=== PATIENT | male | born 1990 ===

== ENCOUNTER 2018-08-04 16:35 | Emergency (ER) | payer OTHER ==
[2018-08-04 17:33] VITALS: BP 113/65
--- NOTE | 2018-08-04 17:46 | UC ---
Lower Extremity/Ankle HPI - HPI Summary HPI Summary: Patient is a 28-year-old male that presents here with mild left great toe pain after skiing. He denies any specific injury but thinks he must have sustained some trauma to his toe while he was in the ski boot. As no pain when he is not bearing weight. He states that it feels painful when his toe hits the top of his shoe.. - History of Current Complaint Chief Complaint: UCLowerExtremity Stated Complaint: TOE INJURY Time Seen by Provider: 08/04/18 17:35 Hx Obtained From: Patient Onset/Duration: Gradual Onset Severity Initially: Mild Severity Currently: Mild Pain Intensity: 3 Pain Scale Used: 0-10 Numeric Aggravating Factor(s): Standing Alleviating Factor(s): Rest Able to Bear Weight: Yes - Allergies/Home Medications Allergies/Adverse Reactions: Allergies Allergy/AdvReac Type Severity Reaction Status Date / Time Penicillins Allergy Unknown Verified 08/04/18 17:33 Reaction Details PMH/Surg Hx/FS Hx/Imm Hx Previously Healthy: Yes - Surgical History Surgical History: None - Family History Known Family History: Positive: Hypertension - Social History Alcohol Use: Weekly Substance Use Type: None Smoking Status (MU): Never Smoked Tobacco Review of Systems All Other Systems Reviewed And Are Negative: Yes Constitutional: Positive: Negative Skin: Positive: Negative Eyes: Positive: Negative ENT: Positive: Negative Respiratory: Positive: Negative Cardiovascular: Positive: Negative Gastrointestinal: Positive: Negative Genitourinary: Positive: Negative Motor: Positive: Negative Neurovascular: Positive: Negative Musculoskeletal: Positive: Negative Neurological: Positive: Negative Psychological: Positive: Negative Physical Exam Triage Information Reviewed: Yes Appearance: Well-Appearing, No Pain Distress, Well-Nourished Vital Signs: Initial Vital Signs Temp 98.3 F 08/04/18 17:25 Pulse 92 08/04/18 17:25 Resp 16 08/04/18 17:25 BP 113/65 08/04/18 17:25 Pulse Ox 99 08/04/18 17:25 Vital Signs Reviewed: Yes Eyes: Positive: Conjunctiva Clear ENT: Positive: Uvula midline. Negative: Nasal congestion, Nasal drainage, Trismus, Muffled voice, Hoarse voice Neck: Positive: Supple Respiratory: Positive: Lungs clear, Normal breath sounds, No respiratory distress, No accessory muscle use Cardiovascular: Positive: RRR, No Murmur Musculoskeletal: Positive: ROM Intact, No Edema, Other: - slighly antalgic gait Neurological: Positive: Alert Psychological Exam: Normal Skin Exam: Other - 50% subungual hematoma left great toe /distal phalanx non tender Lower Extremity Course/Dx - Differential Dx/Diagnosis Provider Diagnosis: Subungual hematoma of great toe of left foot Discharge - Sign-Out/Discharge Documenting (check all that apply): Patient Departure All imaging exams completed and their final reports reviewed: No Studies - Discharge Plan Condition: Stable Disposition: HOME Patient Education Materials: Subungual Hematoma (ED) Referrals: No Primary Care Phys,NOPCP [Primary Care Provider] - Additional Instructions: post op shoe tylenol or advil for pain you may loose nail - Billing Disposition and Condition Condition: STABLE Disposition: Home
== END 2018-08-04 17:57 | disposition home or self-care (01) ==
LOC: UCEAST 16:35
DX: S90.112A Contusion of left great toe without damage to nail, initial encounter (principal); X58.XXXA Exposure to other specified factors, initial encounter; Y93.23 Activity, snow (alpine) (downhill) skiing, snowboarding, sledding, tobogganing and snow tubing; Y92.9 Unspecified place or not applicable; Z88.0 Allergy status to penicillin
CPT/HCPCS: 99202; G0463

== ENCOUNTER 2018-09-27 12:26 | Emergency (ER) | payer OTHER ==
[2018-09-27 14:48] LABS: ABS Basophils 0 10^3/ul (0-0.2); ABS Eosinophils 0.2 10^3/ul (0-0.6); ABS Lymphocytes 1.4 10^3/ul (1.0-4.8); ABS Monocytes 0.4 10^3/ul (0-0.8); ABS Neutrophils 3.8 10^3/ul (1.5-7.7); ABS Nucleated RBC 0 10^3/ul; Hematocrit 46 % (42-52); Hemoglobin 15.6 g/dl (14.0-18.0); Lymphocyte % 23.5 %; Mean Corpuscular HGB Conc 34 g/dl (31-36); Mean Corpuscular Hemoglobin 30 pg (27-31); Mean Corpuscular Volume 89 fL (80-94); Mean Platelet Volume 7.2 fL (7.4-10.4); Nucleated Red Blood Cells % 0.1; Platelet Count 245 10^3/ul (150-450); Red Blood Count 5.17 10^6/ul (4.00-5.40); Red Cell Distribution Width 13 % (10.5-15); White Blood Count 5.9 10^3/ul (3.5-10.8)
[2018-09-27 14:59] LABS: Albumin/Globulin Ratio 1.8 (1-3); Calcium 9.6 mg/dL (8.6-10.3); EGFR African American 109.3 (>60); EGFR Non-African American 90.3 (>60); Globulin 2.8 g/dL (2-4); Potassium 3.9 mmol/L (3.5-5.0); Total Bilirubin 0.9 mg/dL (0.2-1.0); Total Protein 7.8 g/dL (6.4-8.9)
--- NOTE | 2018-09-27 15:53 | ED ---
HPI Chest Pain - HPI Summary HPI Summary: Pt is a 28 y/o M presenting to the ED from [facility], referred for an EKG suggestive of pericarditis, with a chief complaint of intermittent chest discomfort and palpitations, beginning around 0100 two days ago. 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 He states his heart beat is "heavy" and causes pain, which he usually tries to sleep off. He is usually not aware of his heart beat. Pt denies fever, chills, shortness of breath, cough, or rhinorrhea. Pt did not have flu shot. Vital signs while in room: HR 75 bpm, BP 115/73. Pt states he's also a caffeine drinker, usually drinks one K-cup a day, drinks alcohol only rarely, and only 1 beer/day maximum. He is not a smoker. - History of Current Complaint Chief Complaint: EDDysrhythmPalp Time Seen by Provider: 09/27/18 14:41 Hx Obtained From: Patient, Other: - [facility] Onset/Duration: Started Days Ago, Atraumatic, Still Present Time of Onset: 01:00 - 09/25/18 Timing: Intermittent, Lasting Minutes Initial Severity: Mild Current Severity: None Pain Intensity: 0 Pain Scale Used: 0-10 Numeric Chest Pain Location: Left Anterior Chest Pain Radiates: No Character: Fast, Heaviness, Other: - discomfort Aggravating Factor(s): Exertion Alleviating Factor(s): Rest, Spontaneous Resolution Associated Signs and Symptoms: Positive: Negative - rhinorrhea, Chest Pain. Negative: Shortness of Breath, Fever, Chills, Cough - Allergy/Home Medications Allergies/Adverse Reactions: Allergies Allergy/AdvReac Type Severity Reaction Status Date / Time Penicillins Allergy Unknown Verified 08/04/18 17:33 Reaction Details PMH/Surg Hx/FS Hx/Imm Hx Previously Healthy: Yes Endocrine/Hematology History: Denies: Hx Diabetes Cardiovascular History: Denies: Hx Hypertension - Surgical History Surgery Procedure, Year, and Place: Pt denies any surgical hx. 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 Lives: Dormitory/Roommates Alcohol Use: Weekly Alcohol Amount: 1 beer/day at most Hx Substance Use: No Substance Use Type: Reports: None Hx Tobacco Use: No Smoking Status (MU): Never Smoked Tobacco Review of Systems Negative: Fever, Chills Negative: Nasal Discharge Positive: Chest Pain Negative: Shortness Of Breath Gastrointestinal: Negative Positive: no symptoms reported Musculoskeletal: Negative Skin: Negative Neurological: Negative Psychological: Normal All Other Systems Reviewed And Are Negative: Yes Physical Exam - Summary Physical Exam Summary: Appearance: Well-appearing, no pain distress, well-nourished Skin: Warm, color reflects adequate perfusion, dry Head: Normal Head/Face inspection, atraumatic Eyes: Conjunctiva clear ENT: Normal inspection Neck: Supple, no nodes, no JVD Respiratory: Lungs clear, normal breath sounds, no respiratory distress Cardio: RRR, No murmur, pulses normal, brisk capillary refill Abdomen: Soft, nontender Bowel sounds: Present Musculoskeletal: Strength Intact/ROM intact, no calf tenderness, no edema. Psychological: Normal Neuro: Alert, muscle tone normal, no focal deficit Triage Information Reviewed: Yes Vital Signs On Initial Exam: Initial Vitals Temp Pulse Resp BP Pulse Ox 98.7 F 67 18 114/75 99 09/27/18 12:28 09/27/18 12:28 09/27/18 12:28 09/27/18 12:28 09/27/18 12:28 Vital Signs Reviewed: Yes Diagnostics - Vital Signs Vital Signs Temp Pulse Resp BP Pulse Ox 09/27/18 14:19 10 09/27/18 12:28 98.7 F 67 18 114/75 99 - Laboratory Lab Results: Lab Results 09/27/18 09/27/18 09/27/18 Range/Units 14:20 14:20 14:20 WBC 5.9 (3.5-10.8) 10^3/ul RBC 5.17 (4.00-5.40) 10^6/ul Hgb 15.6 (14.0-18.0) g/dl Hct 46 (42-52) % MCV 89 (80-94) fL MCH 30 (27-31) pg MCHC 34 (31-36) g/dl RDW 13 (10.5-15) % Plt Count 245 (150-450) 10^3/ul MPV 7.2 L (7.4-10.4) fL Neut % (Auto) 65.1 % Lymph % (Auto) 23.5 % [place] % (Auto) 6.7 % Eos % (Auto) 4.0 % Baso % (Auto) 0.7 % Absolute Neuts (auto) 3.8 (1.5-7.7) 10^3/ul Absolute Lymphs (auto) 1.4 (1.0-4.8) 10^3/ul Absolute Monos (auto) 0.4 (0-0.8) 10^3/ul Absolute Eos (auto) 0.2 (0-0.6) 10^3/ul Absolute Basos (auto) 0 (0-0.2) 10^3/ul Absolute Nucleated RBC 0 10^3/ul Nucleated RBC % 0.1 Sodium 138 (135-145) mmol/L Potassium 3.9 (3.5-5.0) mmol/L Chloride 102 (101-111) mmol/L Carbon Dioxide 30 (22-32) mmol/L Anion Gap 6 (2-11) mmol/L BUN 15 (6-24) mg/dL Creatinine 1.00 (0.67-1.17) mg/dL Est GFR ( Amer) 109.3 (>60) Est GFR (Non-Af Amer) 90.3 (>60) BUN/Creatinine Ratio 15.0 (8-20) Glucose 95 (70-100) mg/dL Lactic Acid 0.6 (0.5-2.0) mmol/L Calcium 9.6 (8.6-10.3) mg/dL Total Bilirubin 0.90 (0.2-1.0) mg/dL AST 17 (13-39) U/L ALT 12 (7-52) U/L Alkaline Phosphatase 54 (34-104) U/L Troponin I 0.00 (<0.04) ng/mL Total Protein 7.8 (6.4-8.9) g/dL Albumin 5.0 (3.2-5.2) g/dL Globulin 2.8 (2-4) g/dL Albumin/Globulin Ratio 1.8 (1-3) Result Diagrams: 09/27/18 14:20 09/27/18 14:20 Lab Statement: Any lab studies that have been ordered have been reviewed, and results considered in the medical decision making process. - Radiology Chest x-ray Radiology Interpretation Completed By: Radiologist Summary of Radiographic Findings: No cardiopulmonary disease is noted. No pneumothorax is identified. ED physician has reviewed this report. - EKG 1520 Cardiac Rate: Bradycardia - 56bpm EKG Rhythm: Sinus Bradycardia ST Segment: Normal Ectopy: None EKG Comparison: No Significant Change Summary of EKG Findings: An EKG at 1236 shows sinus bradycardia at 56bpm, nml AV /IV CT, nml QTc, and nml axis. No acute changes. Diffuse ST elevations discussed with doctor Sylvester and compared with 09/27/18 at 1128 from [facility]. No significant change. [place] prior [place] [facility] - Additional Comments Diagnostic Additional Comments: Transthoracic echocardiogram There was not any prior study for comparison. Conclusions include: There is normal left ventricular systolic function. The estimated ejection fraction is 55-60%. There is a trace of mitral regurgitation. There is trace tricuspid regurgitation. A trivial pericardial effusion is visualized which measures up to 0.48 cm in a small segment adjacent to the distal RV free wall. No evidence of hemodynamic compromise. Re-Evaluation - Re-Evaluation 1st re-eval Re-Evaluation Time: 16:45 Change: Improved Comment: Pt states he does not have any pain at this time and is feeling better. ECHO is completed. Awaiting results. Chest Pain Course/Dx - Course Course Of Treatment: Pt is a 28 y/o M presenting to the ED with a chief complaint of intermittent chest discomfort around 0100 two days ago. He states his heart beat is heavy and causes pain, which he usually tries to sleep off. It is aggravated when he lies down and when he walks to/from class. Pt denies fever, chills, shortness of breath, cough, or rhinorrhea. Pt did not have flu shot. Vital signs while in room: HR 75 bpm, BP 115/73. CXR shows no cardiopulmonary disease. No pneumothorax is identified. Dr. Sylvester would like an echocardiogram done for the pt as of 1606. As of 161, the echo staff is aware that the order is stat and not routine. An EKG at 1236 shows sinus bradycardia at 56bpm, nml AV/IV CT, nml QTc, and nml axis. No acute changes. Diffuse ST elevations discussed with doctor Sylvester and compared with 09/27/18 at 1128 from formerly [facility]. No significant change. No prior E[place] [facility]. As of 164 , the pt feels better and is agreeable with discharge. Echocardiogram results include: Conclusions: There is normal left ventricular systolic function. The estimated ejection fraction is 55-60%. There is a trace of mitral regurgitation. There is trace tricuspid regurgitation. A trivial pericardial effusion is visualized which measures up to 0.48. cm in a small segment adjacent to the distal RV free wall. No evidence of hemodynamic compromise. Discussed echocardiogram results with the pt at 1735 and the pt is pain free and agreeable. - Chest Pain Differential Diagnosis/HQI/PQRI: Acute OR, ACS, Chest Wall, GI Disease, Lower Respiratory Infection, Pulmonary Embolism - Diagnoses Provider Diagnoses: Chest pain, Palpitations, ST segment changes on electrocardiogram - Provider Notifications Discussed Care Of Patient With: Nando Sylvester - Obtain Cardiac ECHO now Time Discussed With Above Provider: 16:07 Instructed by Provider To: Other - obtain ECHO now Discharge - Sign-Out/Discharge Documenting (check all that apply): Patient Departure - home to [place] Patient Received Moderate/Deep Sedation with Procedure: No - Discharge Plan Condition: Stable Disposition: HOME Patient Education Materials: Chest Pain (ED), Heart Palpitations (ED) Forms: *School Release, *Work Release Referrals: [facility] [Outside] - 2 Weeks Additional Instructions: We did not find evidence of pericarditis on the ECHO of your heart that was done today. You had two negative troponin levels, indicating no evidence of heart damage with the chest discomfort you experienced. Your CRP level was normal also indicating no inflammation or infection. Those labs will print with these discharge instructions. We have given you a copy of your cardiac ECHO. You should have definite follow up with [facility]. Return to the ER if you have any new or worsening symptoms. - Billing Disposition and Condition Condition: STABLE Disposition: Home - Attestation Statements Document Initiated by Scribe: Yes Documenting Scribe: Tiesha Erickson Provider For Whom [place] is Documenting (Include Credential): Dr. Wen Nogueira MD. Scribe Attestation: I, Tiesha Erickson, scribed for Dr. Wen Nogueira MD. on 09/28/18 at 2131. Scribe Documentation Reviewed: Yes Provider Attestation: The documentation as recorded by the scribe, Tiesha Erickson accurately reflects the service I personally performed and the decisions made by me, Dr. Wen Nogueira MD. Status of Scribe Document: Viewed Consult Consult: [id number] - Spoke with Dr. Sylvester who would like to have an echocardiogram done.
[2018-09-27 16:08] LABS: C Reactive Protein 1.46 mg/L (<8.01)
--- NOTE | 2018-09-27 17:15 | ECHO ---
Patient: HARI MURDOCK [facility] Rec#: [id number] : 1990 Date: 09/27/2018 Age: 28y Height: 180 cm / 70.9 in Weight: 78 kg / 171.9 lbs Sex: M BSA: 1.98 Room#: 19 Admit Date#: 09/27/2018 Type: Outpatient Referring: Wen Nogueira MD Reading: Nando Sylvester MD Nurse Wound: Valerie AvendanoRDCS,RDMS Transthoracic Echocardiogram Indication: CP BP: 114/70 HR: 57 Rhythm: NSR Findings History: Previously healthy Technical Comments: The study quality is fair. Left Ventricle: The left ventricular chamber size is normal. There is no left ventricular hypertrophy. There is normal left ventricular systolic function. The estimated ejection fraction is 55-60%. Normal left ventricular diastolic filling is observed. Left Atrium: The left atrial chamber size is normal. Right Ventricle: The right ventricular cavity size is normal. The right ventricular global systolic function is low normal. Right Atrium: The right atrial cavity size is normal. Aortic Valve: The aortic valve is trileaflet. Systolic excursion of the aortic valve is normal. There is no evidence of aortic regurgitation. There is no evidence of aortic stenosis. Mitral Valve: The mitral valve leaflets appear normal. There is a trace of mitral regurgitation. There is no evidence of mitral stenosis. Tricuspid Valve: The tricuspid valve leaflets are normal. There is trace tricuspid regurgitation. No pulmonary hypertension is noted. Pulmonic Valve: The pulmonic valve appears normal. There is a trace pulmonic regurgitation. Pericardium: There is no significant pericardial effusion. A trivial pericardial effusion is visualized.which measures up to .48 cm in a small segment adjacent to the distal RV free wall. No evidence of hemodynamic compromise. Aorta: The ascending aorta is not well visualized. There is no dilatation of the aortic arch. The aortic root is normal in size. Pulmonary Artery: The main pulmonary artery appears normal. Venous: The inferior vena cava appears normal in size. There is a greater than 50% respiratory change in the inferior vena cava dimension. Summary: There was not any prior study for comparison. Conclusions There is normal left ventricular systolic function. The estimated ejection fraction is 55-60%. There is a trace of mitral regurgitation. There is trace tricuspid regurgitation. A trivial pericardial effusion is visualized which measures up to 0.48 cm in a small segment adjacent to the distal RV free wall. No evidence of hemodynamic compromise. Measurements Name Value Normal Range RVIDd (AP) 2D 3.1 cm (0.9 - 2.6) RVDdMajor (2D) 3.2 cm (2.2 - 4.4) RAd ISD 4CH 4.4 cm (3.4 - 4.9) RA (A4C)W 3.8 cm (2.9 - 4.6) IVSd (2D) 0.9 cm (0.6 - 1) LVPWd (2D) 1 cm (0.6 - 1) LVIDd (2D) 4.5 cm (3.6 - 5.4) LVIDs (2D) 3.1 cm - LV FS (2D) 31 % (25 - 45) Aortic Annulus 2.3 cm (1.4 - 2.6) Ao root diameter (2D) 3.1 cm (2.1 - 3.5) Aortic arch 2.2 cm (1.8 - 3.4) LA dimension (AP) 2D 2.4 cm (2.3 - 3.8) LAd ISD 4CH 3.8 cm (2.9 - 5.3) LA ISD 4CH W 3.9 cm (2.5 - 4.5) Name Value Normal Range LA ESV BP (A/L) index 23 ml/m2 - Name Value Normal Range MV E-wave Vmax 0.7 m/sec - MV deceleration time 298 msec - MV A-wave Vmax 0.4 m/sec - MV E:A ratio 1.8 ratio - P. vein S-wave Vmax 0.7 m/sec - P. vein D-wave Vmax 0.5 m/sec - P. vein S:D Vmax ratio 1.5 ratio - P. vein A-wave duration 114 msec - LV septal e' Vmax 0.12 m/sec - LV lateral e' Vmax 0.18 m/sec - LV E:e' septal ratio 6 ratio - LV E:e' lateral ratio 4 ratio - Name Value Normal Range AV Vmax 1 m/sec - AV VTI 23 cm - AV peak gradient 4 mmHg - AV mean gradient 2 mmHg - LVOT Vmax 0.8 m/sec - LVOT VTI 17 cm - LVOT peak gradient 2.6 mmHg - LVOT mean gradient 1 mmHg - MICHAEL Vmax 1.4 m/sec - Name Value Normal Range TR Vmax 2.1 m/sec - TR peak gradient 17 mmHg - RAP 3 mmHg - RVSP 20 mmHg - IVC diameter 1.8 cm - Name Value Normal Range PV Vmax 0.8 m/sec - PV peak gradient 2.6 mmHg -
[2018-09-27 17:46] VITALS: BP 113/68
[2018-09-28 08:21] LABS: Erythrocyte Sed Rate 2 mm/Hr (0-15)
== END 2018-09-27 17:46 | disposition home or self-care (01) ==
LOC: ED 12:26
DX: R07.89 Other chest pain (principal); R00.2 Palpitations; R94.31 Abnormal electrocardiogram [ECG] [EKG]; Z88.0 Allergy status to penicillin
CPT/HCPCS: 36415; 71045; 80053; 83605; 84484; 85025; 85379; 85652; 86140; 93005; 93306; 99282